=== PATIENT | male | born 1940 | race Caucasian/White ===

== ENCOUNTER 2019-12-23 17:10 | Inpatient (IN) | payer MEDICARE, BC ==
--- NOTE | 2019-12-23 17:59 | ED ---
General Adult HPI - General Chief complaint: Shortness of Breath Stated complaint: Sent by PCP - SOB, Fluid Retention Time Seen by Provider: 12/23/19 17:25 Source: patient, RN notes reviewed, old records reviewed Mode of arrival: ambulatory Limitations: no limitations - History of Present Illness Initial comments: 79-year-old male presenting for evaluation of dyspnea, fluid retention. Patient has history of valvular disease according to the patient. He has a history of CLL. He was previously on Lasix but has been off his medication for approximat arvind one month because he did not have a prescription and his physician was not able to call this medication in. Patient reports edema in both legs, left arm, and his abdomen. His had weight gain. No fever. No chest pain. - Related Data Home Medications Medication Instructions Recorded Confirmed Folic Acid 0.8 mg PO DAILY 12/23/19 12/23/19 Ibrutinib [Imbruvica] 420 mg PO HS 12/23/19 12/23/19 Tamsulosin HCl [Flomax] 0.4 mg PO BID 12/23/19 12/23/19 Allergies Allergy/AdvReac Type Severity Reaction Status Date / Time Penicillins Allergy Unknown Verified 12/23/19 18:46 Childhood Sulfa (Sulfonamide Allergy Unknown Verified 12/23/19 18:46 Antibiotics) Review of Systems ROS Statement: Those systems with pertinent positive or pertinent negative responses have been documented in the HPI. ROS Other: All systems not noted in ROS Statement are negative. Past Medical History Past Medical History: Heart Failure Additional Past Medical History / Comment(s): CLL, right kidney surgery, virus of unknown orgin from tearing down barn History of Any Multi-Drug Resistant Organisms: None Reported Past Surgical History: Orthopedic Surgery Additional Past Surgical History / Comment(s): right kidney surgery. Past Psychological History: No Psychological Hx Reported Smoking Status: Never smoker Past Alcohol Use History: None Reported Past Drug Use History: None Reported General Exam Limitations: no limitations General appearance: alert, in no apparent distress Head exam: Present: atraumatic, normocephalic Eye exam: Present: normal appearance, PERRL ENT exam: Present: normal exam Neck exam: Present: normal inspection. Absent: tenderness, meningismus Respiratory exam: Present: respiratory distress, rales, decreased breath sounds Cardiovascular Exam: Present: regular rate, normal rhythm GI/Abdominal exam: Present: soft, distended. Absent: tenderness, guarding, rebound Extremities exam: Present: pedal edema (3+) Neurological exam: Present: alert, oriented X3, CN II-XII intact. Absent: motor sensory deficit Psychiatric exam: Present: normal affect, normal mood Skin exam: Present: warm, dry, intact. Absent: cyanosis, diaphoretic Course Vital Signs 12/23/19 12/23/19 12/23/19 17:14 17:58 18:02 Temperature 97.9 F Pulse Rate 91 68 Respiratory 18 20 20 Rate Blood Pressure 121/83 110/68 O2 Sat by Pulse 86 L 92 L Oximetry EKG Findings - EKG Comments: EKG Findings:: EKG: Normal sinus rhythm, left axis, rate of 94, NM interval 206, QRS duration 96, QTC [address] segment elevation. Medical Decision Making - Medical Decision Making 79-year-old male with hypertension and worsening dyspnea. Patient has x-ray showing. Edema and small bilateral effusions. He has white blood cell count 14 with history of CLL. His hemoglobin is stable 12.5. He has a creatinine 1.33 with no baseline for comparison. He has an elevated BNP at 3900. He's given Lasix in the emergency department. He will be admitted for IV diuresis as well as echocardiogram. [facility] Patient has been admitted with cardiology on consult. - Lab Data Result diagrams: 12/23/19 17:53 12/23/19 17:53 Lab Results 12/23/19 12/23/19 12/23/19 Range/Units 17:53 17:53 17:53 WBC 14.1 H (3.8-10.6) k/uL RBC 4.53 (4.30-5.90) m/uL Hgb 12.5 L (13.0-17.5) gm/dL Hct 40.7 (39.0-53.0) % MCV 89.8 (80.0-100.0) fL MCH 27.7 (25.0-35.0) pg MCHC 30.8 L (31.0-37.0) g/dL RDW 15.8 H (11.5-15.5) % Plt Count 82 L (150-450) k/uL Neutrophils % 43 % Lymphocytes % 50 % Monocytes % 5 % Eosinophils % 1 % Basophils % 1 % Neutrophils # 6.0 (1.3-7.7) k/uL Lymphocytes # 7.0 H (1.0-4.8) k/uL Monocytes # 0.7 (0-1.0) k/uL Eosinophils # 0.1 (0-0.7) k/uL Basophils # 0.1 (0-0.2) k/uL Hypochromasia Marked PT 11.4 (9.0-12.0) sec INR 1.1 (<1.2) APTT 24.8 (22.0-30.0) sec Sodium 141 (137-145) mmol/L Potassium 4.5 (3.5-5.1) mmol/L Chloride 114 H (98-107) mmol/L Carbon Dioxide 18 L (22-30) mmol/L Anion Gap 9 mmol/L BUN 36 H (9-20) mg/dL Creatinine 1.33 H (0.66-1.25) mg/dL Est GFR (CKD-EPI)AfAm 59 (>60 ml/min/1.73 sqM) Est GFR (CKD-EPI)NonAf 51 (>60 ml/min/1.73 sqM) Glucose 107 H (74-99) mg/dL Calcium 8.4 (8.4-10.2) mg/dL Magnesium 2.3 (1.6-2.3) mg/dL Total Bilirubin 0.7 (0.2-1.3) mg/dL AST 25 (17-59) U/L ALT 11 (4-49) U/L Alkaline Phosphatase 63 (38-126) U/L Troponin I (0.000-0.034) ng/mL NT-Pro-B Natriuret Pep pg/mL Total Protein 6.1 L (6.3-8.2) g/dL Albumin 4.0 (3.5-5.0) g/dL 12/23/19 12/23/19 Range/Units 17:53 17:53 WBC (3.8-10.6) k/uL RBC (4.30-5.90) m/uL Hgb (13.0-17.5) gm/dL Hct (39.0-53.0) % MCV (80.0-100.0) fL MCH (25.0-35.0) pg MCHC (31.0-37.0) g/dL RDW (11.5-15.5) % Plt Count (150-450) k/uL Neutrophils % % Lymphocytes % % Monocytes % % Eosinophils % % Basophils % % Neutrophils # (1.3-7.7) k/uL Lymphocytes # (1.0-4.8) k/uL Monocytes # (0-1.0) k/uL Eosinophils # (0-0.7) k/uL Basophils # (0-0.2) k/uL Hypochromasia PT (9.0-12.0) sec INR (<1.2) APTT (22.0-30.0) sec Sodium (137-145) mmol/L Potassium (3.5-5.1) mmol/L Chloride (98-107) mmol/L Carbon Dioxide (22-30) mmol/L Anion Gap mmol/L BUN (9-20) mg/dL Creatinine (0.66-1.25) mg/dL Est GFR (CKD-EPI)AfAm (>60 ml/min/1.73 sqM) Est GFR (CKD-EPI)NonAf (>60 ml/min/1.73 sqM) Glucose (74-99) mg/dL Calcium (8.4-10.2) mg/dL Magnesium (1.6-2.3) mg/dL Total Bilirubin (0.2-1.3) mg/dL AST (17-59) U/L ALT (4-49) U/L Alkaline Phosphatase (38-126) U/L Troponin I 0.017 (0.000-0.034) ng/mL NT-Pro-B Natriuret Pep 3910 pg/mL Total Protein (6.3-8.2) g/dL Albumin (3.5-5.0) g/dL Disposition Clinical Impression: Congestive heart failure, Fluid retention Disposition: ADMITTED IP TO THIS HOSP Condition: Stable Is patient prescribed a controlled substance at d/c from ED?: No Referrals: Geri Ramachandran DO [Primary Care Provider] - 1-2 days Decision to Admit Reason: Admit from EC Decision Date: 12/23/19 Decision Time: 18:52
[2019-12-23 18:12] LABS: Basophils # (A) 0.1 k/uL (0-0.2); Basophils % (A) 1 %; Eosinophils # (A) 0.1 k/uL (0-0.7); Eosinophils % (A) 1 %; HCT 40.7 % (39.0-53.0); HGB 12.5 gm/dL (13.0-17.5); Hypochromasia Marked; Lymphocytes % (A) 50 %; MCH 27.7 pg (25.0-35.0); MCHC 30.8 g/dL (31.0-37.0); MCV 89.8 fL (80.0-100.0); Mean Platelet Volume 10.5; Monocytes # (A) 0.7 k/uL (0-1.0); Monocytes % (A) 5 %; Neutrophils % (A) 43 %; RBC 4.53 m/uL (4.30-5.90); RDW 15.8 % (11.5-15.5); WBC 14.1 k/uL (3.8-10.6)
[2019-12-23 18:19] LABS: Platelet Count 82 k/uL (150-450)
[2019-12-23 18:24] LABS: INR 1.1 (<1.2); Partial Thromboplastin Time 24.8 sec (22.0-30.0); Prothrombin Time 11.4 sec (9.0-12.0)
--- NOTE | 2019-12-23 18:24 | XR ---
EXAMINATION: XR chest 2V DATE AND TIME: 12/23/2019 6:07 PM CLINICAL INDICATION: PHH; difficulty breathing TECHNIQUE: Departmental protocol COMPARISON: None FINDINGS: The lungs demonstrate moderate opacification of the pulmonary vascular bilaterally by a fin e reticular pattern of increased density reaching the periphery of the lungs as septal lines. The pat tern is consistent with interstitial phase pulmonary edema. The pleural spaces are positive for small bilateral pleural effusions posteriorly. The cardiac silhouette is mildly enlarged; remainder of the mediastinal silhouette is unremarkable. The skeletal structures and soft tissues are negative for acute findings. IMPRESSION: Radiographic pattern consistent with interstitial phase cardiogenic pulmonary edema.
[2019-12-23 18:25] LABS: Calcium 8.4 mg/dL (8.4-10.2); Magnesium 2.3 mg/dL (1.6-2.3); Potassium 4.5 mmol/L (3.5-5.1); Total Bilirubin 0.7 mg/dL (0.2-1.3); Total Protein 6.1 g/dL (6.3-8.2)
[2019-12-23] MEDS ORDERED: FUROSEMIDE 10 MG/ML 4 ML VIAL IV STA (18:36)
[2019-12-23] MEDS ORDERED: ACETAMINOPHEN TAB 325 MG TAB PO PRN (18:47)
[2019-12-23] MEDS ORDERED: NALOXONE 0.4 MG/ML 1 ML VIAL IV PRN (18:47)
[2019-12-23] MEDS: FUROSEMIDE 10 MG/ML 4 ML VIAL IV SCH (21:17)
[2019-12-24] MEDS: FOLIC ACID 0.8 MG PO SCH (08:12)
[2019-12-24] MEDS: FUROSEMIDE 10 MG/ML 4 ML VIAL IV SCH (08:25)
[2019-12-24] MEDS ORDERED: TAMSULOSIN 0.4 MG CAP.ER.24H PO SCH (09:00)
--- NOTE | 2019-12-24 10:36 | CT ---
EXAMINATION TYPE: CT angio chest DATE OF EXAM: 12/24/2019 COMPARISON: HISTORY: SOB, chest pain CT DLP: 814.9 mGycm Automated exposure control for dose reduction was used. CONTRAST: CTA scan of the thorax is performed without and with IV Contrast, patient injected with 80 mL of Isov ue 370, pulmonary embolism protocol. MIP images are created and reviewed. 3D reconstructed images a re created on an independent workstation and reviewed. FINDINGS: LUNGS: There are bilateral pleural effusions right greater than left with associated atelectatic mariee ge. Emphysematous changes are present within the lungs. There is no pleural effusion or pneumothorax seen. The tracheobronchial tree is patent. AORTA: Ascending aorta is aneurysmal at 4.1 cm, calcification is present at the level of the aortic root. MEDIASTINUM: There is satisfactory enhancement of the pulmonary artery and its branches, there is no CT evidence for pulmonary embolism. There are abnormal axillary nodes, abnormal soft tissue within t he mediastinum, probable retrocaval pretracheal adenopathy, hilar adenopathy and subcarinal adenopath y, calcification present in the subcarinal location and right hilar region No pericardial effusion is seen. The heart is enlarged. OTHER: There is anasarca. Splenomegaly is present. There is ascites.. IMPRESSION: FINDINGS CONSISTENT WITH PATIENT'S HISTORY OF LYMPHOMA. BILATERAL PLEURAL EFFUSIONS AND ASSOCIATED AT ELECTASIS. CORONARY ARTERY DISEASE. CORRELATE FOR PULMONARY ARTERY HYPERTENSION. NO EVIDENT PULMONARY EMBOLISM. AORTIC ANEURYSM.
[2019-12-24] MEDS ORDERED: IOPAMIDOL CONTRAST (ORAL USE) VIAL PO PRN (11:07)
--- NOTE | 2019-12-24 11:09 | ECHOF ---
Referral Reason: MEASUREMENTS -------- HEIGHT: 172.7 cm WEIGHT: 93.4 kg BP: RVIDd: 4.1 cm (< 3.3) IVSd: 1.3 cm (0.6 - 1.1) LVIDd: 3.5 cm (3.9 - 5.3) LVPWd: 1.2 cm (0.6 - 1.1) IVSs: 1.6 cm LVIDs: 2.0 cm LVPWs: 1.5 cm LAESV Index (A-L): 35.81 ml/m Ao Diam: 2.9 cm (2.0 - 3.7) AV Cusp: 1.0 cm (1.5 - 2.6) LA Diam: 3.4 cm (2.7 - 3.8) MV EXCURSION: 21.866 mm (> 18.000) MV EF SLOPE: 83 mm/s (70 - 150) EPSS: 0.4 cm MV E Patrick: 1.14 m/s MV DecT: 276 ms MV A Patrick: 0.72 m/s MV E/A Ratio: 1.58 AV maxP.05 mmHg AV meanP.74 mmHg AR PHT: 419 ms RAP: 15.00 mmHg RVSP: 53.37 mmHg TAPSE: 18.35 mm FINDINGS -------- This was a technically good study. The left ventricular size is normal. There is mild concentric left ventricular hypertrophy. Overa ll left ventricular systolic function is normal with, an EF between 55 - 60 %. Increased LAP Grade 3 Diastolic Dysfunction. The right ventricle is severely enlarged. LA is moderately dilated 34-39 ml/m2 The right atrial size is normal. Aortic valve is trileaflet and is severely thickened. There is mild aortic regurgitation. There i s severe aortic stenosis present. Peak/mean gradient across the Aortic Valve is 69.05mmHg / 41.74mm Hg. AOV is possible Bicuspid. Vmax of 4.45m/s. The mitral valve is normal. The mitral valve leaflets are mildly thickened. Mild mitral annular c alcification present. Mild mitral regurgitation is present. Moderate to severe tricuspid regurgitation present. There is moderate pulmonary hypertension. The right ventricular systolic pressure, as measured by Doppler, is 53.37mmHg. Trace/mild (physiologic) pulmonic regurgitation. The aortic root size is normal. The inferior vena cava is mildly dilated. There is a trivial pericardial effusion present. CONCLUSIONS -------- 1. The left ventricular size is normal. 2. There is mild concentric left ventricular hypertrophy. 3. Overall left ventricular systolic function is normal with, an EF between 55 - 60 %. 4. Increased LAP Grade 3 Diastolic Dysfunction. 5. The right ventricle is severely enlarged. 6. LA is moderately dilated 34-39 ml/m2 7. Aortic valve is trileaflet and is severely thickened. 8. There is mild aortic regurgitation. 9. There is severe aortic stenosis present. 10. Peak/mean gradient across the Aortic Valve is 69.05mmHg / 41.74mmHg. 11. AOV is possible Bicuspid. 12. The mitral valve leaflets are mildly thickened. 13. Mild mitral annular calcification present. 14. Mild mitral regurgitation is present. 15. Moderate to severe tricuspid regurgitation present. 16. There is moderate pulmonary hypertension. 17. The right ventricular systolic pressure, as measured by Doppler, is 53.37mmHg. 18. Trace/mild (physiologic) pulmonic regurgitation. 19. The aortic root size is normal. 20. The inferior vena cava is mildly dilated. 21. There is a trivial pericardial effusion present. [employer] FORMER: Petrona Zapien RDCS
[2019-12-24] MEDS: FUROSEMIDE 100 MG in SODIUM CHLORIDE 0.9% 90 ML IV SCH ×2 (11:33→20:36)
[2019-12-24] MEDS: METOPROLOL TARTRATE 25 MG TAB PO SCH (11:33)
--- NOTE | 2019-12-24 11:50 | P.HPIM ---
History of Present Illness H&P Date: 12/24/19 Chief Complaint: Severe hypoxia, dyspnea and shortness of breath, anasarca, aortic stenosis 79-year-old male one of Dr. Rob patient with past medical history of CLL, valvular heart disease, BPH, chronic anemia and elevated blood pressure who [facility] after was seen by his primary care for worsening dyspnea and shortness of breath with 40 pounds with cane as a fluid retention all over his body was diagnosed with severe hypoxia with pulse ox in the 80s patient was evaluated found to have severe edema his d-dimer was mildly elevated patient ended up going for CTA result were consistent with no pulmonary edema but bilateral pleural effusion and associated atelectasis coronary artery disease correlate for pulmonary artery hypertension with no evidence of pulmonary embolism and aneurysm of 4.1 cm found. Patient was started on IV Lasix drip 10 mg an hour oxygen CT of the abdomen and pelvis was order echocardiogram was performed and showed severe pulmonary hypertension with severe aortic stenosis with gradient over 55 mmHg. Patient will be seen cardiology and depend on the results of CT of the abdomen and pelvis we'll decide on further management. With oxygen and updraft patient is hemodynamically stable at this point. Review of Systems CONSTITUTIONAL: Well-developed no acute respiratory distress. EYES: No icterus sclerae, no conjunctivitis. EARS, NOSE, MOUTH, THROAT, and FACE: No sore throat, lymphadenopathy, carotid bruits or deformity. RESPIRATORY: Positive shortness of breath cough wheezes. CARDIOVASCULAR: Positive PND orthopnea, palpitation with no sign of angina positive fluid retention GASTROINTESTINAL: No Abd pain, Nausea or vomiting, no Diarrhea or constipation, No GI Bleed, no distention or masses. GENITOURINARY: Negative for Hematuria or UTI, no kidney stones. Mild BPH symptoms INTEGUMENT/BREAST: Negative for any muscular injury with mild osteoarthritis.. HEMATOLOGIC/LYMPHATIC: Negative for bleed or purpura. History of CLL on chemotherapy MUSCULOSKELTAL: Negative for Myalgia or arthralgia. NEURLOGICAL: No LOC, Sz or syncope, blurred vision dizziness or abnormality.. BEHAVIORAL/PSYCH: Negative. ENDOCRINE: Negative. Social history: Patient smokes 1 pack a day for 40 years [place] and abuse his single and lives alone. He is retired no drug use or marijuana use a Chin does not use oxygen CPAP or BiPAP at home. Family history: His mother age 82 from Alzheimer disease, father age 88 from motor vehicle accident. Patient had one sister who is living and well for children with no management problem. Past Medical History Past Medical History: Heart Failure Additional Past Medical History / Comment(s): CLL, right kidney surgery, virus of unknown orgin from tearing down barn History of Any Multi-Drug Resistant Organisms: None Reported Past Surgical History: Orthopedic Surgery Additional Past Surgical History / Comment(s): right kidney surgery. Past Psychological History: No Psychological Hx Reported Smoking Status: Never smoker Past Alcohol Use History: None Reported Past Drug Use History: None Reported Medications and Allergies Home Medications Medication Instructions Recorded Confirmed Type Folic Acid 0.8 mg PO DAILY 12/23/19 12/23/19 History Ibrutinib [Imbruvica] 420 mg PO HS 12/23/19 12/23/19 History Tamsulosin HCl [Flomax] 0.4 mg PO BID 12/23/19 12/23/19 History Allergies Allergy/AdvReac Type Severity Reaction Status Date / Time Penicillins Allergy Unknown Verified 12/23/19 18:46 Childhood Sulfa (Sulfonamide Allergy Unknown Verified 12/23/19 18:46 Antibiotics) Physical Exam Vitals: Vital Signs Temp Pulse Pulse Resp BP BP Pulse Ox 12/24/19 11:35 105/53 12/24/19 08:43 97.8 F 84 22 98/57 93 L 12/24/19 08:30 84 16 12/24/19 06:00 73 16 99/56 95 12/23/19 22:29 89 20 127/73 94 L 12/23/19 19:38 87 20 132/88 95 12/23/19 18:59 92 18 121/67 92 L 12/23/19 18:02 68 20 110/68 92 L 12/23/19 17:58 20 12/23/19 17:14 97.9 F 91 18 121/83 86 L Intake and Output 12/23/19 12/24/19 12/24/19 22:59 06:59 14:59 Output Total 1650 Balance -1650 Output: Urine 1650 Other: Voiding Method Urinal # Voids 2 Weight 93.44 kg General Appearance: Alert, cooperative, no distress, appears stated age. Neck HEENT: Supple, no lymphadenopathy, no thyroid enlargement, no carotid bruits. Lungs: Decreased breath sound bilaterally fine rhonchi hyposmotic expiratory wheezes mild crackles in the bases. Chest Wall: Decrease expansion with deep inspiration no tenderness and no deformity was found on exam, no costochondral pain or discomfort. Heart: Regular rate and rhythm, S1, S2 most consistent with aortic stenosis. Positive S3 Back: Symmetric, no curvature, ROM normal, no CVA tenderness. Abdomen: Soft, non-tender, bowel sounds active all four quadrants, no masses, no organomegaly. Anasarca in the abdominal wall area. Extremities: Extremities normal, atraumatic, generalized edema mostly anasarca. Pulses: 2+ and symmetric. Skin: Skin color, texture, tugor normal, no rashes or lesions. Neurologic: Alert oriented x3 cranial nerves II through XII intact, no motor def icit, no abnormal balance or gait. Results CBC & Chem 7: 12/23/19 17:53 12/23/19 17:53 Labs: Abnormal Lab Results - Last 24 Hours (Table) 12/23/19 12/23/19 12/24/19 Range/Units 17:53 17:53 08:52 WBC 14.1 H (3.8-10.6) k/uL Hgb 12.5 L (13.0-17.5) gm/dL MCHC 30.8 L (31.0-37.0) g/dL RDW 15.8 H (11.5-15.5) % Plt Count 82 L (150-450) k/uL Lymphocytes # 7.0 H (1.0-4.8) k/uL D-Dimer 1.54 H (<0.60) mg/L FEU Chloride 114 H (98-107) mmol/L Carbon Dioxide 18 L (22-30) mmol/L BUN 36 H (9-20) mg/dL Creatinine 1.33 H (0.66-1.25) mg/dL Glucose 107 H (74-99) mg/dL Total Protein 6.1 L (6.3-8.2) g/dL Thrombosis Risk Factor Assmnt - DVT/VTE Prophylaxis DVT/VTE Prophylaxis: Pharmacologic Prophylaxis ordered, Mechanical Prophylaxis ordered Assessment and Plan Assessment: 1 acute respiratory failure: Combination of severe hypoxia, anasarca and fluid overload, congestive heart failure, mild COPD and valvular heart disease. 2 anasarca: Medically etiology at this point possibility of congestive heart failure or any type of blockage affecting the lymphatic system around the vena cava and explain this finding patient will be going for CT of the abdomen pelvis continue diuretics for now and continue to watch his alkylamine protein level also watch urine output. 3 congestive heart failure exacerbation: Mostly diastolic dysfunction most likely connected with valvular heart disease and pulmonary hypertension continue IV diuretics. Request thyroid panel to be done. 4 severe aortic stenosis: With a gradient over 55 mmHg patient might require intervention but all depend of the results of his testing including his heart cath if possible before deciding on any management consistent with TAVR or open valve surgery. Also been affected by the severity of the pulmonary hypertension with all need to be studied very carefully before that decision is made in the meanwhile continue medical management. 5 severe pulmonary hypertension: From finding consistent with the echo and CTA patient might need to be seen by pulmonary and eventually might need to see pulmonary hypertension specialist. 6 ascending aortic aneurysm: Size 4.1 cm need to be watch every 6 months from here on. 7 CLL: Patient has been on Ibrutinib 420 mg daily. 8 acute kidney injury: GFR 51, continue to watch kidney function while patient is on diuretics. 9 severe thrombocytopenia: Most likely secondary to CLL no sign of active bleed at this point patient has bruises all over his body. 10 severe BPH: Still on Flomax is not having any major retention. 11 GI prophylaxis: Patient will be on pantoprazole. 12 DVT prophylaxis: Patient platelet count is quite bit low have to be careful with anticoagulation no heparin or Lovenox this point continue knee-high PUJA hose and Venodyne boots and patient might be considered for one of the new anticoagulation agent like Xarelto 10 mg daily. CODE STATUS: Full code. Admit patient to the inpatient service for more than 2 night stay.
[2019-12-24] MEDS ORDERED: PNEUMOCOCCAL VACC-PNEUMOVAX 23 25 MCG/0.5 ML VIAL IM ONE (11:55)
[2019-12-24] MEDS ORDERED: INFLUENZA VACCINE (6 MOS+) 60 MCG/0.5 ML SYRINGE IM ONE (11:55)
--- NOTE | 2019-12-24 13:21 | P.CRDCN ---
History of Present Illness History of present illness: HISTORY OF PRESENTING ILLNESS This is a pleasant 79-year-old male past medical history significant for valvular heart disease, CLL, former nicotine dependence and BPH. He states he follows with a loss control consultant in [place] but does not remember his name. We have been asked to see in consultation for heart failure. Center to the hospital with 2 day complaints of exertional shortness of breath. He also has been experiencing increase edema in his legs, hands and arms. He was previously prescribed lasix but did not have a refill. He is somewhat vague about his history and seems to have poor follow up and compliance. He denies chest pain, dizziness or palpitations. Echocardiogram requested reveals preserved LV systolic function with ejection fraction 55-60%, grade 3 diastolic dysfunction, severely enlarged right ventricle, moderately dilated left atrium, mild aortic regurgitation, severe aortic stenosis with a mean gradient of 41 mmHg, aortic valve appears bicuspid, mild MR, moderate to severe TR and moderate pulmonary hypertension with an RVSP of 53 mmHg. DIAGNOSTICS EKG reveals sinus mechanism, left axis deviation and single T-wave inversions in lead V2 likely related to lead placement. Chest xray reveals interstitial phase cardiogenic pulmonary edema. CT angiogram of the chest reveals bilateral pleural effusions right greater than left with associated atelectasis, underlying emphysema, ascending aorta is aneurysmal at 4.1 cm, no CT evidence for pulmonary embolism, anasarca and ascites noted. Laboratory reviewed, WBC 14.1, hemoglobin 12.5, platelets 82, d-dimer 1.54, sodium 141, potassium 4.5, creatinine 1.33, magnesium 2.3, cardiac enzymes negative 1, NT proBNP 3910 and TSH 6.31. He currently takes no daily cardiac medications. REVIEW OF SYSTEMS At the time of my exam: CONSTITUTIONAL: Denies fever or chills. CARDIOVASCULAR: Complains of exertional shortness of breath and orthopnea. Denies chest pain, PND or palpitations. RESPIRATORY: Denies cough. GASTROINTESTINAL: Denies abdominal pain, diarrhea, constipation, nausea or vomiting. MUSCULOSKELETAL: Denies myalgias. NEUROLOGIC: Denies numbness, tingling or weakness. ENDOCRINE: Denies fatigue, weight change, polydipsia or polyurina. GENITOURINARY: Denies burning, hematuria or urgency with micturation. HEMATOLOGIC: Denies history of anemia or bleeding. PHYSICAL EXAMINATION Blood pressure 98/57 heart rate 84 afebrile and maintaining oxygen saturation on nasal cannula. CONSTITUTIONAL: No apparent distress. HEENT: Head is normocephalic. Pupils are equal, round. Sclerae anicteric. Mucous membranes of the mouth are moist. No JVD. No carotid bruit. CHEST EXAMINATION: Bibasilar rales, no wheezes or rhonci. No chest wall tenderness is noted on palpation or with deep breathing. HEART EXAMINATION: Regular rate and rhythm. S1, S2 heard. Holosystolic murmur at all listening points, no gallops or rub. ABDOMEN: Soft, nontender, mildly edematous. Positive bowel sounds. EXTREMITIES: 2+ peripheral pulses, 3+ bilateral lower extremity pitting edema and no calf tenderness. NEUROLOGIC EXAMINATION: Patient is awake, alert and oriented x3. ASSESSMENT Acute on chronic diastolic congestive heart failure Leukocytosis Valvular heart disease Aortic stenosis, severe with mean gradient of 40 mmHg. Possibly bicuspid valve. Pulmonary hypertension Thrombocytopenia CLL PLAN Initiate Lasix infusion 10 mg per hour. Initiate metoprolol 25 mg daily. Decrease Flomax to daily at bedtime. Document accurate intake and output along with daily weights. Follow renal function and electrolytes in the morning. Further recommendations follow based upon clinical course. Thank you kindly for this consultation. Nurse Practitioner note has been reviewed, I agree with a documented findings and plan of care. Patient was seen and examined. Past Medical History Past Medical History: Heart Failure Additional Past Medical History / Comment(s): CLL, right kidney surgery, virus of unknown orgin from tearing down barn History of Any Multi-Drug Resistant Organisms: None Reported Past Surgical History: Orthopedic Surgery Additional Past Surgical History / Comment(s): right kidney surgery. Past Anesthesia/Blood Transfusion Reactions: No Reported Reaction Past Psychological History: No Psychological Hx Reported Smoking Status: Never smoker Past Alcohol Use History: None Reported Past Drug Use History: None Reported - Past Family History Father Family Medical History: No Reported History Additional Family Medical History / Comment(s): Father of a MVA at the age of 88 yrs. Mother Family Medical History: Dementia Additional Family Medical History / Comment(s): Mother of alzheimer's at t he age of 83 or 84 yrs old. Medications and Allergies Home Medications Medication Instructions Recorded Confirmed Type Folic Acid 0.8 mg PO DAILY 12/23/19 12/23/19 History Ibrutinib [Imbruvica] 420 mg PO HS 12/23/19 12/23/19 History Tamsulosin HCl [Flomax] 0.4 mg PO BID 12/23/19 12/23/19 History Allergies Allergy/AdvReac Type Severity Reaction Status Date / Time Penicillins Allergy Unknown Verified 12/23/19 18:46 Childhood Sulfa (Sulfonamide Allergy Unknown Verified 12/23/19 18:46 Antibiotics) Physical Exam Vitals: Vital Signs Temp Pulse Pulse Resp BP BP Pulse Ox 12/24/19 11:35 105/53 12/24/19 08:43 97.8 F 84 22 98/57 93 L 12/24/19 08:30 84 16 12/24/19 06:00 73 16 99/56 95 12/23/19 22:29 89 20 127/73 94 L 12/23/19 19:38 87 20 132/88 95 12/23/19 18:59 92 18 121/67 92 L 12/23/19 18:02 68 20 110/68 92 L 12/23/19 17:58 20 12/23/19 17:14 97.9 F 91 18 121/83 86 L Intake and Output 12/23/19 12/24/19 12/24/19 22:59 06:59 14:59 Output Total 1650 Balance -1650 Output: Urine 1650 Other: Voiding Method Urinal # Voids 2 Weight 93.44 kg 93.44 kg Results 12/23/19 17:53 12/23/19 17:53 Cardiac Enzymes 12/23/19 12/23/19 Range/Units 17:53 17:53 AST 25 (17-59) U/L Troponin I 0.017 (0.000-0.034) ng/mL Coagulation 12/23/19 Range/Units 17:53 PT 11.4 (9.0-12.0) sec APTT 24.8 (22.0-30.0) sec CBC 12/23/19 Range/Units 17:53 WBC 14.1 H (3.8-10.6) k/uL RBC 4.53 (4.30-5.90) m/uL Hgb 12.5 L (13.0-17.5) gm/dL Hct 40.7 (39.0-53.0) % Plt Count 82 L (150-450) k/uL Comprehensive Metabolic Panel 12/23/19 Range/Units 17:53 Sodium 141 (137-145) mmol/L Potassium 4.5 (3.5-5.1) mmol/L Chloride 114 H (98-107) mmol/L Carbon Dioxide 18 L (22-30) mmol/L BUN 36 H (9-20) mg/dL Creatinine 1.33 H (0.66-1.25) mg/dL Glucose 107 H (74-99) mg/dL Calcium 8.4 (8.4-10.2) mg/dL AST 25 (17-59) U/L ALT 11 (4-49) U/L Alkaline Phosphatase 63 (38-126) U/L Total Protein 6.1 L (6.3-8.2) g/dL Albumin 4.0 (3.5-5.0) g/dL Current Medications Generic Name Dose Route Start Last Admin Trade Name Freq PRN Reason Stop Dose Admin Acetaminophen 650 mg 12/23/19 18:47 Acetaminophen Tab 325 Mg Tab PO Q6HR PRN Mild Pain or Fever > 100.5 Furosemide 100 mg/ Sodium 100 mls @ 10 mls/hr 12/24/19 09:45 12/24/19 11:33 Chloride IV 10 mg/hr .Q10H MONY 10 mls/hr Administration 10 MG/HR Iopamidol 30 ml 12/24/19 11:07 Iopamidol Contrast (Oral Use) Vial PO 12/25/19 11:[address] Scan Metoprolol Tartrate 25 mg 12/24/19 09:45 12/24/19 11:33 Metoprolol Tartrate 25 Mg Tab PO 25 mg DAILY MONY Administration Naloxone HCl 0.2 mg 12/23/19 18:47 Naloxone 0.4 Mg/Ml 1 Ml Vial IV Q2M PRN Opioid Reversal Ibrutinib [Imbruvica 420 mg 12/24/19 21:00 ] 420 Mg Tablet PO HS MONY Folic Acid [Folic 0.8 mg 12/24/19 09:00 12/24/19 08:12 Acid] 0.8 Mg Capsule PO Not Given DAILY MONY Tamsulosin HCl 0.4 mg 12/24/19 21:00 Tamsulosin 0.4 Mg Cap.Er.24h PO HS MONY Intake and Output 12/23/19 12/24/19 12/24/19 22:59 06:59 14:59 Output Total 1650 Balance -1650 Output: Urine 1650 Other: Voiding Method Urinal # Voids 2 Weight 93.44 kg 93.44 kg Patient Weight 12/25/19 06:59 Weight 93.44 kg 12/23/19 17:53 12/23/19 17:53
[2019-12-24 13:22] LABS: T4, Free (Free Thyroxine) 1.04 ng/dL (0.78-2.19)
[2019-12-24] MEDS: TAMSULOSIN 0.4 MG CAP.ER.24H PO SCH (20:34)
[2019-12-25] MEDS: FUROSEMIDE 100 MG in SODIUM CHLORIDE 0.9% 90 ML IV SCH ×3 (02:19→22:12)
[2019-12-25 07:42] LABS: Basophils # (A) 0.1 k/uL (0-0.2); Basophils % (A) 1 %; Eosinophils # (A) 0.1 k/uL (0-0.7); Eosinophils % (A) 1 %; HCT 37.8 % (39.0-53.0); HGB 11.8 gm/dL (13.0-17.5); Hypochromasia Marked; Lymphocytes # (A) 6.2 k/uL (1.0-4.8); Lymphocytes % (A) 52 %; MCH 27.9 pg (25.0-35.0); MCHC 31.3 g/dL (31.0-37.0); MCV 89.1 fL (80.0-100.0); Mean Platelet Volume 9.3; Monocytes # (A) 0.7 k/uL (0-1.0); Monocytes % (A) 6 %; Neutrophils # (A) 4.6 k/uL (1.3-7.7); Neutrophils % (A) 39 %; RBC 4.24 m/uL (4.30-5.90)
[2019-12-25 07:56] LABS: Calcium 8.4 mg/dL (8.4-10.2); Potassium 3.9 mmol/L (3.5-5.1)
[2019-12-25 08:31] LABS: Platelet Count 76 k/uL (150-450)
[2019-12-25] MEDS: FOLIC ACID 0.8 MG PO SCH (08:32)
[2019-12-25] MEDS: METOPROLOL TARTRATE 25 MG TAB PO SCH (08:32)
[2019-12-25] MEDS ORDERED: IOPAMIDOL CONTRAST (ORAL USE) VIAL PO PRN (11:32)
--- NOTE | 2019-12-25 12:02 | P.PN ---
Subjective Progress Note Date: 12/25/19 HISTORY OF PRESENT ILLNESS 79-year-old male one of Dr. Ramachandran patient with past medical history of CLL, valvular heart disease, BPH, chronic anemia and elevated blood pressure who presented to the emergency department [facility] [place] late evening on 12/23/2019 after was seen by his primary care for worsening dyspnea and shortness of breath with 40 pounds with cane as a fluid retention all over his body was diagnosed with severe hypoxia with pulse ox in the 80s patient was evaluated found to have severe edema his d-dimer was mildly elevated patient ended up going for CTA result were consistent with no pulmonary edema but bilateral pleural effusion and associated atelectasis coronary artery disease correlate for pulmonary artery hypertension with no evidence of pulmonary embolism and aneurysm of 4.1 cm found. Patient was started on IV Lasix drip 10 mg an hour oxygen CT of the abdomen and pelvis was order echocardiogram was performed and showed severe pulmonary hypertension with severe aortic stenosis with gradient over 55 mmHg. Patient will be seen cardiology and depend on the results of CT of the abdomen and pelvis we'll decide on further management. With oxygen and updraft patient is hemodynamically stable at this point. 12/24: Patient is seen today on the cardiac stepdown unit. He has been seen by cardiology and was placed on Lasix drip yesterday and started on metoprolol 25 mg daily, decrease Flomax to bedtime. Weight is down 7 kg. He has less pedal edema today. CT of the abdomen and chest will be done today. He has been afebrile, heart ra te 78, blood pressure 98/52, pulse ox 94% on 4 L nasal cannula. Repeat blood work reveals WBC 12.0, hemoglobin 11.8, platelet count 76. Electrolytes normal, BUN 41 creatinine 1.43. TSH 6.310 with normal free T4 1 0.04. Patient states that his breathing is improved today and he is happy that he has had significant weight loss. Echocardiogram reveals EF of 55-60%, mild concentric left ventricular hypertrophy, mild aortic regurgitation, severe aortic stenosis, mild mitral regurgitation, moderate to severe tricuspid regurgitation, moderate pulmonary hypertension. REVIEW OF SYSTEMS CONSTITUTIONAL: Well-developed no acute respiratory distress. Denies fever EYES: No icterus sclerae, no conjunctivitis. EARS, NOSE, MOUTH, THROAT, and FACE: No sore throat, lymphadenopathy, carotid bruits or deformity. RESPIRATORY: Positive shortness of breath cough wheezes. CARDIOVASCULAR: Positive PND orthopnea, palpitation with no sign of angina positive fluid retention GASTROINTESTINAL: No Abd pain, Nausea or vomiting, no Diarrhea or constipation, No GI Bleed, no distention or masses. GENITOURINARY: Negative for Hematuria or UTI, no kidney stones. Mild BPH symptoms INTEGUMENT/BREAST: Negative for any muscular injury with mild osteoarthritis.. HEMATOLOGIC/LYMPHATIC: Negative for bleed or purpura. History of CLL on chemotherapy MUSCULOSKELTAL: Negative for Myalgia or arthralgia. NEURLOGICAL: No LOC, Sz or syncope, blurred vision dizziness or abnormality.. BEHAVIORAL/PSYCH: Negative. ENDOCRINE: Negative. PHYSICAL EXAMINATION General Appearance: Alert, cooperative, no distress, appears stated age. No respiratory distress. Neck HEENT: Supple, no lymphadenopathy, no thyroid enlargement, no carotid bruits. Lungs: Decreased breath sound bilaterally fine rhonchi hyposmotic expiratory wheezes mild crackles in the bases. Chest Wall: Decrease expansion with deep inspiration no tenderness and no deformity was found on exam, no costochondral pain or discomfort. Heart: Regular rate and rhythm, S1, S2 most consistent with aortic stenosis. Positive S3 Back: Symmetric, no curvature, ROM normal, no CVA tenderness. Abdomen: Soft, non-tender, bowel sounds active all four quadrants, no masses, no organomegaly. Anasarca in the abdominal wall area. Extremities: Extremities normal, atraumatic, generalized edema mostly anasarca. Pulses: 2+ and symmetric. Skin: Skin color, texture, tugor normal, no rashes or lesions. Neurologic: Alert oriented x3 cranial nerves II through XII intact, no motor deficit, no abnormal balance or gait. ASSESSMENT AND PLAN 1 acute hypoxic respiratory failure: Combination of severe hypoxia, anasarca and fluid overload, congestive heart failure, mild COPD and valvular heart disease. 2 anasarca: Medically etiology at this point possibility of congestive heart failure or any type of blockage affecting the lymphatic system around the vena cava and explain this finding patient will be going for CT of the abdomen pelvis continue diuretics for now and continue to watch his alkylamine protein level also watch urine output. 3 acute diastolic heart failure with valvular heart disease and pulmonary hypertension continue IV diuretics. Request thyroid panel to be done. 4 severe aortic stenosis: With a gradient over 55 mmHg patient might require intervention but all depend of the results of his testing including his heart cath if possible before deciding on any management consistent with TAVR or open valve surgery. Also been affected by the severity of the pulmonary hypertension with all need to be studied very carefully before that decision is made in the meanwhile continue medical management. 5 severe pulmonary hypertension: From finding consistent with the echo and CTA patient might need to be seen by pulmonary and eventually might need to see pulmonary hypertension specialist. 6 ascending aortic aneurysm: Size 4.1 cm need to be watch every 6 months from here on. 7 CLL: Patient has been on Ibrutinib 420 mg daily. 8 acute kidney injury: GFR 51, continue to watch kidney function while patient is on diuretics. 9 severe thrombocytopenia: Most likely secondary to CLL no sign of active bleed at this point patient has bruises all over his body. 10 severe BPH: Still on Flomax is not having any major retention. 11 GI prophylaxis: Patient will be on pantoprazole. 12 DVT prophylaxis: Patient platelet count is quite bit low have to be careful with anticoagulation no heparin or Lovenox this point continue knee-high PUJA hose and Venodyne boots and patient might be considered for one of the new anticoagulation agent like Xarelto 10 mg daily. CODE STATUS: Full code. DISCHARGE PLAN Most likely return home. Impression and plan of care have been directed as dictated by the signing physician. Radha Krueger nurse practitioner acting as scribe for signing physician. Objective - Vital Signs Vital signs: Vital Signs Temp 98.2 F 12/24/19 20:00 Pulse 78 12/25/19 03:59 Resp 19 12/25/19 03:59 BP 106/59 12/25/19 03:59 Pulse Ox 95 12/25/19 03:59 Intake & Output 12/24/19 12/25/19 12/25/19 18:59 06:59 18:59 Intake Total 80 147.667 118 Output Total 2750 3750 875 Balance -5890 -5922.333 -757 Weight 86.2 kg Intake: Intake, IV Titration 80 147.667 Amount Furosemide 100 mg In 80 147.667 Sodium Chloride 0.9% 90 ml @ 10 MG/HR 10 mls/hr IV .Q10H MONY Rx#: [id number] Oral 118 Output: Urine 2750 3750 875 Other: Voiding Method Urinal Urinal # Voids 1 - Labs CBC & Chem 7: 10/24/20 07:13 12/25/19 07:13 Labs: Abnormal Lab Results - Last 24 Hours (Table) 12/23/19 12/25/19 12/25/19 Range/Units 17:53 07:13 07:13 WBC 12.0 H (3.8-10.6) k/uL RBC 4.24 L (4.30-5.90) m/uL Hgb 11.8 L (13.0-17.5) gm/dL Hct 37.8 L (39.0-53.0) % RDW 16.0 H (11.5-15.5) % Plt Count 76 L (150-450) k/uL Lymphocytes # 6.2 H (1.0-4.8) k/uL BUN 41 H (9-20) mg/dL Creatinine 1.43 H (0.66-1.25) mg/dL TSH 6.310 H (0.465-4.680) mIU/L
--- NOTE | 2019-12-25 13:00 | CT ---
EXAMINATION TYPE: CT abdomen pelvis w con DATE OF EXAM: 12/25/2019 COMPARISON: CTA chest 12/24/2019 HISTORY: lymphoma CT DLP: 1225.3 mGycm Automated exposure control for dose reduction was used. TECHNIQUE: Helical acquisition of images was performed from the lung bases through the pelvis. CONTRAST: Performed with Oral Contrast and with IV Contrast, patient injected with 80 mL of Isovue 300. FINDINGS: LUNG BASES: Redemonstrated bilateral pleural effusions, right greater left. Cardiomegaly. Calcified c oronary artery disease. No pericardial effusion. Right hilar lymph nodes are incompletely visualized. LIVER: Calcified granulomas of the liver. BILIARY SYSTEM: Cholelithiasis. PANCREAS: Normal. SPLEEN: Splenomegaly measuring 13.5 cm craniocaudal. Calcified granulomas of the spleen. ADRENALS: Normal. KIDNEYS: No hydronephrosis. Left renal cyst. Right renal too small to characterize hypodense lesions. BOWEL: No obstruction or thickening. Colonic diverticulosis PERITONEUM: Small volume ascites and mesenteric edema . No pneumoperitoneum. Bilateral inguinal lizabeth ias with fluid tracking into the bilateral inguinal canals. LYMPH NODES: Retroperitoneal lymphadenopathy is seen, which is difficult to measure due to mesenteri c haziness. There is bilateral pelvic lymphadenopathy, largest measuring up to 1.6 x 3.5 cm on the le ft (201:33). There are some prominent nonenlarged bilateral inguinal nodes. PELVIS: Normal urinary bladder. Coarse prostatic calcifications. VASCULATURE: No abdominal aortic aneurysm. Infrarenal abdominal aortic ectasia measures up to 2.5 cm . Calcified coronary artery disease MUSCULOSKELETAL: No aggressive osseous destructive lesions. Degenerative changes of the spine. Levos coliosis of the lumbar spine. Marked diffuse body wall anasarca. IMPRESSION: 1. Retroperitoneal and pelvic lymphadenopathy, and splenomegaly, consistent with history of lymphoma. 2. Small volume ascites and diffuse mesenteric edema. These findings along with body wall anasarca li adenike represent positive body fluid balance. 3. Cholelithiasis. 4. Redemonstrated bilateral pleural effusions.
[2019-12-25] MEDS ORDERED: ATORVASTATIN 40 MG TAB PO STA (14:01)
--- NOTE | 2019-12-25 15:15 | PN ---
PROGRESS NOTE This is a gentleman who was seen by me yesterday with severe aortic stenosis and congestive heart failure, mostly right-sided. He had a significant edema of lower extremities as well as a JVD. I placed him on a Lasix drip. This morning he lost nearly 6 L and 7 kg weight is down. He feels better. Denies any chest pain. His breathing is remarkably improved. Electrolytes are acceptable. Creatinine has gone up mildly. I am adding Lipitor 40 mg daily. We will obtain a CBC, BMP tomorrow. Continue Lasix drip for now. This patient gentleman has severe aortic stenosis, probably a bicuspid valve will require coronary angiography and transesophageal echo down the road. I explained this to him. We will optimize him further and hopefully tomorrow I will switch him from IV Lasix drip to IV push Lasix or oral Lasix. Plan is to continue current medications and increase activity. Add Lipitor 40 mg daily. Physical exam revealed JVD of 1 cm. Ejection systolic murmur audible. Second heart sound is not well heard. Lungs revealed decent air entry improved. Lower extremity edema has improved remarkably. MMODL / IJN: [id number] /
[2019-12-25] MEDS: ATORVASTATIN 40 MG TAB PO SCH (21:33)
[2019-12-25] MEDS: TAMSULOSIN 0.4 MG CAP.ER.24H PO SCH (21:34)
[2019-12-26] MEDS: FUROSEMIDE 100 MG in SODIUM CHLORIDE 0.9% 90 ML IV SCH (06:26)
[2019-12-26 06:39] LABS: HCT 35.7 % (39.0-53.0); HGB 11.3 gm/dL (13.0-17.5); Hypochromasia Moderate; MCH 27.7 pg (25.0-35.0); MCHC 31.7 g/dL (31.0-37.0); MCV 87.4 fL (80.0-100.0); Mean Platelet Volume 9.8; RBC 4.08 m/uL (4.30-5.90); WBC 14.6 k/uL (3.8-10.6)
[2019-12-26 06:41] LABS: Platelet Count 75 k/uL (150-450)
[2019-12-26 06:53] LABS: Calcium 7.9 mg/dL (8.4-10.2)
[2019-12-26] MEDS: FOLIC ACID 0.8 MG PO SCH (08:12)
[2019-12-26] MEDS: METOPROLOL TARTRATE 25 MG TAB PO SCH (08:14)
--- NOTE | 2019-12-26 10:20 | PN ---
PROGRESS NOTE This gentleman has severe aortic stenosis and heart failure. I placed him on a Lasix drip. He lost more than 10 kg. He feels much better today. I will discontinue the Lasix drip and put him on Lasix IV push 60 mg q.12 hours. Creatinine has gone up. We will watch the closely. We will do a BMP tomorrow. Vitals are stable. JVD is evident of 1 cm. No carotid bruit. Ejection systolic murmur is audible at the base. Lungs reveal improved air entry. Abdomen is soft. Lower extremity edema is improved remarkably. Plan is to increase activity, put him on oral Lasix and possible discharge tomorrow. I will see him in the office and perform a coronary angiography and transesophageal echo. MMODL / IJN: [id number] /
--- NOTE | 2019-12-26 11:59 | P.PN ---
Subjective Progress Note Date: 12/26/19 HISTORY OF PRESENT ILLNESS 79-year-old male one of Dr. Ramachandran patient with past medical history of CLL, valvular heart disease, BPH, chronic anemia and elevated blood pressure who presented to the emergency department [facility] late evening on 12/23/2019 after was seen by his primary care for worsening dyspnea and shortness of breath with 40 pounds with cane as a fluid retention all over his body was diagnosed with severe hypoxia with pulse ox in the 80s patient was evaluated found to have severe edema his d-dimer was mildly elevated patient ended up going for CTA result were consistent with no pulmonary edema but bilateral pleural effusion and associated atelectasis coronary artery disease correlate for pulmonary artery hypertension with no evidence of pulmonary embolism and aneurysm of 4.1 cm found. Patient was started on IV Lasix drip 10 mg an hour oxygen CT of the abdomen and pelvis was order echocardiogram was performed and showed severe pulmonary hypertension with severe aortic stenosis with gradient over 55 mmHg. Patient will be seen cardiology and depend on the results of CT of the abdomen and pelvis we'll decide on further management. With oxygen and updraft patient is hemodynamically stable at this point. 12/24: Patient is seen today on the cardiac stepdown unit. He has been seen by cardiology and was placed on Lasix drip yesterday and started on metoprolol 25 mg daily, decrease Flomax to bedtime. Weight is down 7 kg. He has less pedal edema today. CT of the abdomen and chest will be done today. He has been afebrile, heart ra te 78, blood pressure 98/52, pulse ox 94% on 4 L nasal cannula. Repeat blood work reveals WBC 12.0, hemoglobin 11.8, platelet count 76. Electrolytes normal, BUN 41 creatinine 1.43. TSH 6.310 with normal free T4 1 0.04. Patient states that his breathing is improved today and he is happy that he has had significant weight loss. Echocardiogram reveals EF of 55-60%, mild concentric left ventricular hypertrophy, mild aortic regurgitation, severe aortic stenosis, mild mitral regurgitation, moderate to severe tricuspid regurgitation, moderate pulmonary hypertension. 12/25: Patient states he is feeling quite well today. Less lower extremity edema but still has some fluid in his thighs. He has been transitioned this morning to IV Lasix at 60 mg twice daily. He has been afebrile, heart rate 75, blood pressure 105/52, pulse ox 93% on 4 L nasal cannula. Repeat blood work reveals normal electrolytes, BUN 40 and creatinine 1.68. WBC 15.6, hemoglobin 11.3, platelet count 75. He continues to diurese well with weight loss. Anticipate probable discharge tomorrow. REVIEW OF SYSTEMS CONSTITUTIONAL: Well-developed no acute respiratory distress. Denies fever, denies chills. EYES: No icterus sclerae, no conjunctivitis. EARS, NOSE, MOUTH, THROAT, and FACE: No sore throat, lymphadenopathy, carotid bruits or deformity. RESPIRATORY: Positive shortness of breath-improving cough wheezes. CARDIOVASCULAR: Positive PND orthopnea, palpitation with no sign of angina pos itive fluid retention GASTROINTESTINAL: No Abd pain, Nausea or vomiting, no Diarrhea or constipation, No GI Bleed, no distention or masses. GENITOURINARY: Negative for Hematuria or UTI, no kidney stones. Mild BPH symptoms INTEGUMENT/BREAST: Negative for any muscular injury with mild osteoarthritis.. HEMATOLOGIC/LYMPHATIC: Negative for bleed or purpura. History of CLL on chemotherapy MUSCULOSKELTAL: Negative for Myalgia or arthralgia. NEURLOGICAL: No LOC, Sz or syncope, blurred vision dizziness or abnormality.. BEHAVIORAL/PSYCH: Negative. ENDOCRINE: Negative. PHYSICAL EXAMINATION General Appearance: Alert, cooperative, no distress, appears stated age. No r espiratory distress. Neck HEENT: Supple, no lymphadenopathy, no thyroid enlargement, no carotid brui ts. Lungs: Decreased breath sound bilaterally fine rhonchi hyposmotic expiratory wheezes mild crackles in the bases. Chest Wall: Decrease expansion with deep inspiration no tenderness and no deformity was found on exam, no costochondral pain or discomfort. Heart: Regular rate and rhythm, S1, S2 most consistent with aortic stenosis. Positive S3 Back: Symmetric, no curvature, ROM normal, no CVA tenderness. Abdomen: Soft, non-tender, bowel sounds active all four quadrants, no masses, no organomegaly. Anasarca in the abdominal wall area. Extremities: Extremities normal, atraumatic, improving lower extremity edema. Pulses: 2+ and symmetric. Skin: Skin color, texture, tugor normal, no rashes or lesions. Neurologic: Alert oriented x3 cranial nerves II through XII intact, no motor deficit, no abnormal balance or gait. ASSESSMENT AND PLAN 1 acute hypoxic respiratory failure: Combination of severe hypoxia, anasarca and fluid overload, congestive heart failure, mild COPD and valvular heart disease. 2 anasarca: Medically etiology at this point possibility of congestive heart failure or any type of blockage affecting the lymphatic system around the vena cava and explain this finding patient will be going for CT of the abdomen pelvis continue diuretics for now and continue to watch his alkylamine protein level also watch urine output. 3 acute diastolic heart failure with valvular heart disease and pulmonary hypertension continue IV diuretics. Request thyroid panel to be done. Lasix drip transitioned to IV Lasix 60 mg twice daily 4 severe aortic stenosis: With a gradient over 55 mmHg patient might require intervention but all depend of the results of his testing including his heart cath if possible before deciding on any management consistent with TAVR or open valve surgery. Also been affected by the severity of the pulmonary hypertension with all need to be studied very carefully before that decision is made in the meanwhile continue medical management. 5 severe pulmonary hypertension: From finding consistent with the echo and CTA patient might need to be seen by pulmonary and eventually might need to see pulmonary hypertension specialist. 6 ascending aortic aneurysm: Size 4.1 cm need to be watch every 6 months from here on. 7 CLL: Patient has been on Ibrutinib 420 mg daily. 8 acute kidney injury: GFR 51, continue to watch kidney function while patient is on diuretics. 9 severe thrombocytopenia: Most likely secondary to CLL no sign of active bleed at this point patient has bruises all over his body. 10 severe BPH: Still on Flomax is not having any major retention. 11 GI prophylaxis: Patient will be on pantoprazole. 12 DVT prophylaxis: Patient platelet count is quite bit low have to be careful with anticoagulation no heparin or Lovenox this point continue knee-high PUJA hose and Venodyne boots and patient might be considered for one of the new anticoagulation agent like Xarelto 10 mg daily. CODE STATUS: Full code. DISCHARGE PLAN Most likely return home on Friday. Impression and plan of care have been directed as dictated by the signing physician. Radha Krueger nurse practitioner acting as scribe for signing physician. Objective - Vital Signs Vital signs: Vital Signs Temp 98.2 F 12/26/19 04:00 Pulse 75 12/26/19 04:00 Resp 19 12/26/19 04:00 BP 105/52 12/26/19 04:00 Pulse Ox 93 L 12/26/19 04:00 Intake & Output 12/25/19 12/26/19 12/26/19 18:59 06:59 18:59 Intake Total 458 179.000 240 Output Total 1425 1400 1200 Balance -967 -1221.000 -960 Weight 78.9 kg Intake: Intake, IV Titration 100 179.000 Amount Furosemide 100 mg In 100 179.000 Sodium Chloride 0.9% 90 ml @ 10 MG/HR 10 mls/hr IV .Q10H [facility] Rx#: [id number] Oral 358 240 Output: Urine 1425 1400 1200 Other: Voiding Method Urinal # Voids 1 - Labs CBC & Chem 7: 12/26/19 06:05 12/26/19 06:05 Labs: Abnormal Lab Results - Last 24 Hours (Table) 12/26/19 12/26/19 Range/Units 06:05 06:05 WBC 14.6 H (3.8-10.6) k/uL RBC 4.08 L (4.30-5.90) m/uL Hgb 11.3 L (13.0-17.5) gm/dL Hct 35.7 L (39.0-53.0) % RDW 16.0 H (11.5-15.5) % Plt Count 75 L (150-450) k/uL BUN 48 H (9-20) mg/dL Creatinine 1.68 H (0.66-1.25) mg/dL Calcium 7.9 L (8.4-10.2) mg/dL
[2019-12-26 13:36] VITALS: RESP 18
[2019-12-26] MEDS: FUROSEMIDE 10 MG/ML 10 ML VIAL IV SCH (20:27)
[2019-12-26] MEDS: ATORVASTATIN 40 MG TAB PO SCH (20:27)
[2019-12-26] MEDS: TAMSULOSIN 0.4 MG CAP.ER.24H PO SCH (20:28)
[2019-12-27 08:42] LABS: Calcium 8.3 mg/dL (8.4-10.2); Potassium 4.1 mmol/L (3.5-5.1)
[2019-12-27] MEDS: FUROSEMIDE 10 MG/ML 10 ML VIAL IV SCH (10:04)
[2019-12-27] MEDS: METOPROLOL TARTRATE 25 MG TAB PO SCH (10:04)
[2019-12-27] MEDS: FOLIC ACID 0.8 MG PO SCH (10:04)
[2019-12-27 10:25] VITALS: BP 102/56; PULSE 73; TEMP 97.6
--- NOTE | 2019-12-27 12:53 | P.PN ---
Subjective Progress Note Date: 12/27/19 This is a 79-year-old gentleman with past medical history significant for valvular heart disease, CLL, former nicotine dependence, BPH, who presented to the hospital with symptoms of exertional shortness of breath and increase in bilateral peripheral edema. He has been diuresing well on IV Lasix. His echocardiogram with Doppler study revealed a normal left ventricular systolic function, severely enlarged right ventricle, moderately dilated left atrium, mild aortic regurg and severe aortic stenosis with a mean gradient of 41 mg of mercury, the aortic valve appears to be bicuspid. The patient was seen and examined this morning, feels well, breathing is stable. Blood pressure 102/60 with a heart rate in the 70s, 94% on 4 L of oxygen. Sodium 137, potassium 4.1, BUN 52, creatinine 1.6. Objective - Vital Signs Vital signs: Vital Signs Temp 97.6 F 12/27/19 08:00 Pulse 73 12/27/19 10:00 Resp 18 12/27/19 10:00 BP 102/56 12/27/19 08:00 Pulse Ox 87 L 12/27/19 08:00 Intake & Output 12/26/19 12/27/19 12/27/19 18:59 06:59 18:59 Intake Total 720 118 Output Total 2300 1560 325 Balance -1580 -1560 -207 Weight 88 kg 76 kg Intake: Oral 720 118 Output: Urine 2300 1560 325 Other: Voiding Method Urinal Urinal # Voids 2 - Exam PHYSICAL EXAMINATION: GENERAL: 29-year-old gentleman in no acute distress at the time of my examination HEENT: Head is atraumatic, normocephalic. Pupils equal, round. Sclera a nicteric. Conjunctiva are clear. Mucous membranes of the mouth are moist. Neck is supple. There is no elevated jugular venous pressure. No carotid bruit is heard. HEART EXAMINATION: R S1 and S2 1 systolic ejection murmur is heard CHEST EXAMINATION: Lungs are clear to auscultation and precussion. No chest wall tenderness is noted on palpation or with deep breathing. ABDOMEN: Soft, nontender. Bowel sounds are heard. No organomegaly noted. EXTREMITIES: 2+ peripheral pulses with trace evidence of peripheral edema and no calf tenderness noted. NEUROLOGIC patient is awake, alert and oriented 3 . - Labs CBC & Chem 7: 12/26/19 06:05 12/27/19 07:32 Labs: Abnormal Lab Results - Last 24 Hours (Table) 12/27/19 Range/Units 07:32 Carbon Dioxide 31 H (22-30) mmol/L BUN 52 H (9-20) mg/dL Creatinine 1.62 H (0.66-1.25) mg/dL Calcium 8.3 L (8.4-10.2) mg/dL Assessment and Plan Plan: Assessment and plan #1 acute on chronic diastolic congestive heart failure #2 severe aortic stenosis, possibly bicuspid valve #3 pulmonary hypertension #4 thrombocytopenia #5 CLL Plan We will discontinue the IV Lasix and start the patient on Lasix 60 mg one tablet by mouth twice a day. Dr. Ayala did speak with the patient today regarding the need for biopsy for possible lymphoma. The patient states that his son with a smear Bandar Tao, he will go to live with his son and follow with oncology care. Patient will also establish a bevel operator there to follow-up with regarding the severe aortic stenosis. DNP note has been reviewed, I agree with a documented findings and plan of care. Patient was seen and examined.
[2019-12-27] MEDS ORDERED: FUROSEMIDE 20 MG TAB PO SCH (16:00)
--- NOTE | 2019-12-28 07:49 | P.DS ---
Providers Date of admission: 12/23/19 18:47 Expected date of discharge: 12/27/19 Attending physician: Ameya Ayala Consults: 12/23/19 18:48 Consult Physician Routine Consulting Provider: Bal Bone Consult Reason/Comments: CHF Do you want consulting provider notified?: Yes Primary care physician: Geri Ramachandran [facility] Course: HISTORY OF PRESENT ILLNESS 79-year-old male one of Dr. Ramachandran patient with past medical history of CLL, valvular heart disease, BPH, chronic anemia and elevated blood pressure who presented to the emergency department [facility] late evening on 12/23/2019 after was seen by his primary care for worsening dyspnea and shortness of breath with 40 pounds with cane as a fluid retention all over his body was diagnosed with severe hypoxia with pulse ox in the 80s patient was evaluated found to have severe edema his d-dimer was mildly elevated patient ended up going for CTA result were consistent with no pulmonary edema but bilateral pleural effusion and associated atelectasis coronary artery disease correlate for pulmonary artery hypertension with no evidence of pulmonary embolism and aneurysm of 4.1 cm found. Patient was started on IV Lasix drip 10 mg an hour oxygen CT of the abdomen and pelvis was order echocardiogram was performed and showed severe pulmonary hypertension with severe aortic stenosis with gradient over 55 mmHg. Patient will be seen cardiology and depend on the results of CT of the abdomen and pelvis we'll decide on further management. With oxygen and updraft patient is hemodynamically stable at this point. 12/24: Patient is seen today on the cardiac stepdown unit. He has been seen by cardiology and was placed on Lasix drip yesterday and started on metoprolol 25 mg daily, decrease Flomax to bedtime. Weight is down 7 kg. He has less pedal edema today. CT of the abdomen and chest will be done today. He has been afebrile, heart rate 78, blood pressure 98/52, pulse ox 94% on 4 L nasal cannula. Repeat blood work reveals WBC 12.0, hemoglobin 11.8, platelet count 76. Electrolytes normal, BUN 41 creatinine 1.43. TSH 6.310 with normal free T4 1 0.04. Patient states that his breathing is improved today and he is happy that he has had significant weight loss. Echocardiogram reveals EF of 55-60%, mild concentric left ventricular hypertrophy, mild aortic regurgitation, severe aortic stenosis, mild mitral regurgitation, moderate to severe tricuspid regurgitation, moderate pulmonary hypertension. 12/25: Patient states he is feeling quite well today. Less lower extremity edema but still has some fluid in his thighs. He has been transitioned this morning to IV Lasix at 60 mg twice daily. He has been afebrile, heart rate 75, blood pressure 105/52, pulse ox 93% on 4 L nasal cannula. Repeat blood work reveals normal electrolytes, BUN 40 and creatinine 1.68. WBC 15.6, hemoglobin 11.3, platelet count 75. He continues to diurese well with weight loss. Antic ipate probable discharge tomorrow. 12/26: Patient denies any new complaints today. His breathing status is stable and he continues to have improvement of lower extremity edema. Patient today voices that he has followed up with his oncologist for lymphoma which he has been told is stage 0. Recommend the patient follow up with his oncologist in the next week. He has been provided copies of CTA of the chest, abdominal pelvic CAT scan and echocardiogram. He has also been advised to undergo heart catheterization in [place] but declined at the time. Pulse ox today is at 87% with activity and home oxygen will be arranged. He has been afebrile, heart rate 73, blood pressure 102/56. Repeat lab work reveals CO2 31, BUN 52 and creatinine 1.62. Patient will be discharged home today in stable condition. ASSESSMENT AND PLAN 1 acute hypoxic respiratory failure secondary to anasarca and fluid overload possibly from lymphoma, congestive heart failure, mild COPD and valvular heart disease. 2 anasarca: Medically etiology at this point possibility of congestive heart failure or any type of blockage affecting the lymphatic system 3 acute diastolic heart failure with valvular heart disease and pulmonary hypertension. 4 severe aortic stenosis: With a gradient over 55 mmHg patient might require intervention. 5 severe pulmonary hypertension 6 ascending aortic aneurysm: Size 4.1 cm 7 CLL: Patient has been on Ibrutinib 420 mg daily. 8 acute kidney injury and chronic kidney disease stage III. 9 severe thrombocytopenia 10 severe BPH 11 chronic hypoxic respiratory failure. Home oxygen arranged by case fitter. DISCHARGE PLAN Home Impression and plan of care have been directed as dictated by the signing physician. Radha Krueger nurse practitioner acting as scribe for signing physician. Patient Condition at Discharge: Good Plan - Discharge Summary Discharge Rx Participant: No New Discharge Prescriptions: New Spironolactone [Aldactone] 25 mg PO DAILY #30 tablet Furosemide [Lasix] 40 mg PO BID #60 tablet Atorvastatin [Lipitor] 40 mg PO HS #30 tab Metoprolol Tartrate [Lopressor] 25 mg PO DAILY #30 tab Continue Tamsulosin HCl [Flomax] 0.4 mg PO BID Folic Acid 0.8 mg PO DAILY Ibrutinib [Imbruvica] 420 mg PO HS Discharge Medication List Folic Acid 0.8 mg PO DAILY 12/23/19 [History] Ibrutinib [Imbruvica] 420 mg PO HS 12/23/19 [History] Tamsulosin HCl [Flomax] 0.4 mg PO BID 12/23/19 [History] Atorvastatin [Lipitor] 40 mg PO HS #30 tab 12/27/19 [Rx] Furosemide [Lasix] 40 mg PO BID #60 tablet 12/27/19 [Rx] Metoprolol Tartrate [Lopressor] 25 mg PO DAILY #30 tab 12/27/19 [Rx] Spironolactone [Aldactone] 25 mg PO DAILY #30 tablet 12/27/19 [Rx] Follow up Appointment(s)/Referral(s): Dedrick Mills MD [STAFF PHYSICIAN] - 01/03/20 3:00 pm ([employer] ) [facility] [NON-STAFF] - Geri Ramachandran DO [Primary Care Provider] - 12/29/19 10:20 am (Please call office when you get home after being discharged.) Patient Instructions/Handouts: Heart Failure (DC), Aortic Stenosis (DC), Low- Sodium Diet (DC) Activity/Diet/Wound Care/Special Instructions: Patient requires home oxygen at discharge for hypoxia related diagnosis of CHF Follow up with Oncologist this week regarding lymphoma diagnosis and management. Follow up with own [employer] in [place] for further management of diastolic heart failure and severe aortic stenosis, moderate pulmonary hypertension. CHF 1. Weigh yourself every morning after you urinate. If you gain 2-3 pounds overnight or 5 pounds in one week, call your primary physician for guidance on your medications. Keep a log of your weights. 2. Avoid salt, or foods with hidden salt. Extra salt makes your heart work harder and traps the fluid in your body for longer. 3. Take all of your medications as directed, especially your water pills. NEVER skip a dose. 4. Elevate your legs when you are not up moving around to help with circulation and prevent swelling. 5. Call your physician if you notice any extra swelling in your legs, ankles, feet or abdomen, if you have a new dry cough, if your shortness of breath worsens with activity or at rest, or if you feel more fatigued. Discharge Disposition: HOME SELF-CARE
== END 2019-12-27 13:07 | disposition home or self-care (01) | DRG 291 ==
LOC: EC 17:10 → 3SCARD 18:47
PROVIDERS: ADMIT Internal Medicine Geriatric Medicine; ATTEND Internal Medicine Geriatric Medicine
DX: I13.0 Hypertensive heart and chronic kidney disease with heart failure and stage 1 through stage 4 chronic kidney disease, or unspecified chronic kidney disease (principal); I50.33 Acute on chronic diastolic (congestive) heart failure; J96.21 Acute and chronic respiratory failure with hypoxia; C91.10 Chronic lymphocytic leukemia of B-cell type not having achieved remission; J98.11 Atelectasis; N17.9 Acute kidney failure, unspecified; Q23.1 Congenital insufficiency of aortic valve; F17.210 Nicotine dependence, cigarettes, uncomplicated; I25.10 Atherosclerotic heart disease of native coronary artery without angina pectoris; I27.20 Pulmonary hypertension, unspecified; I71.2 Thoracic aortic aneurysm, without rupture; J43.9 Emphysema, unspecified; D69.59 Other secondary thrombocytopenia; N18.30 Chronic kidney disease, stage 3 unspecified; N40.0 Benign prostatic hyperplasia without lower urinary tract symptoms; Z79.899 Other long term (current) drug therapy; Z82.0 Family history of epilepsy and other diseases of the nervous system; Z60.2 Problems related to living alone; Z79.818 Long term (current) use of other agents affecting estrogen receptors and estrogen levels; D64.9 Anemia, unspecified
CPT/HCPCS: 36415; 71046; 71275; 74177; 80048; 80053; 83735; 83880; 84439; 84443; 84484; 85025; 85027; 85379; 85610; 85730; 93005; 93306; 96365; 96366; 96376; 99285